=== PATIENT | female | born 2000 ===

== ENCOUNTER 2024-10-18 01:54 | Emergency (ER) | payer SELFPAY ==
[2024-10-18 02:03] VITALS: BP 126/90
--- NOTE | 2024-10-18 02:15 | ED.GENMED ---
History of Present Illness
General
Chief Complaint: Psychiatric Problem
Source: patient and ambulance crew
Exam Limitations: none
Time Seen by Provider: 10/18/24 02:00
Nursing documentation reviewed up to this point in time: agreed with
History of Present Illness
History of Present Illness:
24 yo female presents to the emergency department due to suicidal ideation. She states she is not suicidal but was mad at her girlfriend. She wanted to get away from her. She moved from [place] to move in with her girlfriend. She states she was
drinking and using marijuana.
Past History
Past History
ED Past Medical History: Psychiatric (anxiety, depression)
ED Past Surgical History: None
Social History
Alcohol: Binge drinker
Drug: Marijuana
Review of Systems
Review of Systems
Allergies reviewed?: Yes
All Other Systems: Not applicable
Constitutional: Reports no symptoms
EENT: Reports no symptoms
Respiratory: Reports no symptoms
Cardiac: Reports no symptoms
ABD/GI: Reports no symptoms
: Reports no symptoms
Musculoskeletal: Reports no symptoms
Skin: Reports no symptoms
Neurological: Reports no symptoms
Endocrine: Reports no symptoms
Hematologic/Lymphatic: Reports no symptoms
Psychiatric: Reports no symptoms
Phy Exam
Physical Exam
Physical Exam:
Physical Exam
General: no apparent distress, not acutely ill
Neck: supple. no meningeal signs. normal posterior pharynx
Heart: s1/s2 regular rate and rhythm, no murmur. equal radial
pulses.
HEENT: Pupils equal round reactive to light, EOMI
Lungs: no acute respiratory distress. clear bilaterally
Abdomen: normal bowel sounds. not tender. no CVAT
Neuro: alert and oriented. no focal neurological deficits cranial nerves II through XII intact
Skin: no rash
Psychiatric: well kept. interactive and cooperative
Extremities: no edema. no calf tenderness. negative homans. good distal pulses
Course
Orders/Labs/Results
Orders:
Orders
10/18/24 02:15
Crisis Consult Urgent
Reason for Consult: suicidal ideation
Vital Signs
Initial and Last Documented VS:
Initial Vital Signs
Temp Pulse Resp BP Pulse Ox
98 F 69 18 126/90 100
10/18/24 02:03 10/18/24 02:03 10/18/24 02:03 10/18/24 02:03 10/18/24 02:03
Last Documented Vital Signs
Temp Pulse Resp BP Pulse Ox
98 F 69 18 126/90 100
10/18/24 02:03 10/18/24 02:03 10/18/24 02:03 10/18/24 02:03 10/18/24 02:03
MDM/Problems Addressed
Differential Diagnosis Includes:
Depression, anxiety
MDM/Problems Addressed:
24 yo female with self harm gestures, denies SI/HI. Stable for discharge with family.
*Pulse Oximetry
Patient hypoxic: no
*Critical Care Note
Total Time (30-74mins, 75-104mins- exclusive of procedures): Not Applicable
Patient Management
Social determinants of health affecting care: Living situation and Strong social support
Discussion with other providers: Dolly Pusher (crisis agrees pt may be discharged)
Escalation/DeEscalation of care consider admission/obs:
admit not indicated
ED Attending Note
-
Portions of this chart may have been created with voice recognition software.� Occasional wrong word or��sound alike� substitutions may have occurred due to the inherent limitations of voice recognition software.
Discharge Plan
Departure
Patient Disposition: Home (Routine Discharge)
Date of Disposition: 10/18/24
Time of Disposition: 02:50
Patient with high blood pressure during this ER visit?: Yes
Condition: Good
Discharge Problem:
Adjustment disorder
Instructions: Generalized Anxiety Disorder (DC)
Activity Restrictions/Additional Instructions:
Follow up with primary care. Return for any concerns.
Interventions
Interventions:
*Risk Screen - Suicide Last Done: 10/18/24 02:03
*General Assessment Last Done: 10/18/24 02:03
*Neglect/Abuse Screening Last Done: 10/18/24 02:03
*ED COVID-19 Vaccine History Last Done: 10/18/24 02:19
ED-Psychological Assessment Last Done: 10/18/24 02:22
Discharge Date and Time
Print Language: ANDORRAN
[2024-10-18 02:19] VITALS: BMI 22.0
== END 2024-10-18 03:31 | disposition home or self-care (01) ==
LOC: EMR 01:54
PROVIDERS: EMERGENCY PHYSICIAN Emergency Medicine
DX: R45.851 Suicidal ideations (principal); F43.20 Adjustment disorder, unspecified; R03.0 Elevated blood-pressure reading, without diagnosis of hypertension; F41.9 Anxiety disorder, unspecified; F32.A Depression, unspecified
CPT/HCPCS: 99283